=== PATIENT | male | born 1955 | race Caucasian/White ===

== ENCOUNTER 2018-07-09 18:10 | Emergency (ER) | payer MEDICARE, OTHER ==
[2018-07-09] MEDS ORDERED: Adacel (T-DAP) 0.5 ML SYRINGE ONE (18:40)
--- NOTE | 2018-07-09 19:17 | RAD ---
RIGHT FOOT: 07/09/18 Three views. HISTORY: Injury to foot. The tarsals appear intact. Metatarsals and phalanges appear intact. Extension deformities are seen at all MTP joints. IMPRESSION: No acute findings. POS: [facility]
[2018-07-09] MEDS ORDERED: Acetaminophen 325 MG TAB ONE (19:31)
== END 2018-07-09 19:39 | disposition home or self-care (01) ==
LOC: NAV ERS 18:10
DX: S91.331A Puncture wound without foreign body, right foot, initial encounter (principal); Z87.891 Personal history of nicotine dependence; W45.0XXA Nail entering through skin, initial encounter
CPT/HCPCS: 90471; 90715

== ENCOUNTER 2020-12-03 16:19 | Emergency (ER) | payer MEDICARE ==
[2020-12-03] MEDS ORDERED: Acetaminophen 500 MG TAB ONE (16:34)
[2020-12-04 07:33] LABS: SARS-CoV-2 PCR by NAA DETECTED (NotDetected)
== END 2020-12-03 17:40 | disposition home or self-care (01) ==
LOC: NAV ERS 16:19
DX: U07.1 COVID-19 (principal); Z87.891 Personal history of nicotine dependence
CPT/HCPCS: U0003; U0005; 99283